=== PATIENT | male | born 1975 | race Caucasian/White ===

== ENCOUNTER 2017-07-16 21:04 | Emergency (ER) | payer SELFPAY ==
[~2017-07-16] VITALS: Ht 177.8 cm; Wt 93.6 kg
[2017-07-16 21:06] VITALS: BP 141/97; PULSE 99; TEMP 98.8
[2017-07-16] MEDS ORDERED: NORCO 325 MG-51 TAB PO (22:10)
[2017-07-16] MEDS ORDERED: PEN-VEE K500 MG PO (22:10)
== END 2017-07-16 22:22 | disposition home or self-care (01) ==
LOC: COL.ER 21:04
DX: K02.9 Dental caries, unspecified (principal); S02.5XXD Fracture of tooth (traumatic), subsequent encounter for fracture with routine healing; F17.210 Nicotine dependence, cigarettes, uncomplicated